=== PATIENT | female | born 2000 | race Caucasian/White ===

== ENCOUNTER 2025-06-16 09:35 | Outpatient (AMB) | payer MEDICAID, SELFPAY ==
--- NOTE | 2025-06-16 10:00 | A.PHYSOV_ITS ---
Vital Signs 06/16/25 10:05 Height 5 ft 3 in Weight 146 lb BMI 25.9 Intake Visit Reasons: NPV -CHRONIC B/L LOW BACK PAIN W/OUT SCIATICA Intake Note: Patient is a 64 year old female here today for a new patient appointment . Patient is having low back pain. Supervisor Core Drilling Required: No Allergies amphetamine (From Adderall) Allergy (Unknown, Verified 06/13/25 11:32) Unknown coconut oil Allergy (Unknown, Verified 06/13/25 11:32) Unknown dextroamphetamine (From Adderall) Allergy (Unknown, Verified 06/13/25 11:32) Unknown dog dander Allergy (Unknown, Verified 06/13/25 11:32) Unknown epinephrine Allergy (Unknown, Verified 06/13/25 11:32) unknown HPI Comments Details: History of Present Illness The patient is a 24-year-old female presenting with chronic back pain and associated right leg weakness. The back pain has been present since she was 11 or 12 years old, but it has worsened significantly over the past year and a half to two years. The pain is exacerbated by any activity, including standing, walking, and sitting, and is rated as a 6 out of 10 in severity. The patient reports that the pain radiates from her back down her right leg, causing weakness and paresthesias. She has not undergone any recent treatments such as physical therapy or customer care assistant. The patient has a history of fibromyalgia, which contributes to her overall pain experience. She also reports numbness in her right leg, which she did not initially notice until it was pointed out during the examination. I reviewed the referring provider's no prior consultation. Results - Imaging: X-ray lumbar spine 05/16/2025 impression: Walking fracture dislocation lumbar spine. The images were reviewed by me and I agree with the radiology report. [facility] Social History (Updated 06/16/25 @ 10:11 by Kathryn Zamora MA) Unable to assess alcohol history related to: Unknown Alcohol intake: current Alcohol intake frequency: does not drink Patient Tobacco Use Status: Never used Tobacco Use of substances other than those prescribed or required for medical reasons: Yes Substance Use Type: Marijuana Review of Systems Narrative Review of Systems - Musculoskeletal: Reports chronic back pain and right leg weakness. - Neurological: Reports numbness in right leg. Physical Exam Exam Exam: Physical Exam Lumbar Spine: Examination of her lumbar spine, there is no visible swelling or deformity. She is tender to the lower lumbar facets. She is otherwise nontender. Full range of motion of the lumbar spine. She does have an increase in pain with facet loading. Special Tests: Lhermittes sign was negative Heel Toe walk is normal Left straight leg raise: Negative Right straight leg raise: Negative Special tests Kaylie test is negative Ganslen's test is negative SI Joint compression test negative Sejal test negative Piriformis stretch is negative Lower Extremities: Full range of motion bilateral lower extremities. No calf pain or edema. Neuro: Sensation: Patient reports decreased sensation throughout the right lower extremity to light touch. Strength L2 (Psoas): 5/5 on the left and 5/5 on the right. L3 (Quads): 5/5 on the left and 5/5 on the right. L4 (Ant tibialis): 5/5 on the left and 5/5 on the right. L5 (EHL) 5/5 on the left and 5/5 on the right. S1 (Gastroc): 5/5 on the left and 5/5 on the right. DTR L4: (Patellar) Left 2 Right 2 S1: (Achilles) Left 2 Right 2 Babinski Downgoing No pathologic clonus. No involuntary movement. Vital Signs: BMI result Body Mass Index 25.9 Assessment & Plan Assessment & Plan (1) Lumbar radiculopathy: Code(s): M54.16 - Radiculopathy, lumbar region Category: Medical Plan Plan Patient was informed and verbally consented to the use of an ambient scribe for clinic note documentation during this visit. 1. Chronic Back Pain The patient will be referred to physical therapy to address chronic back pain and associated symptoms. Follow-up post physical therapy, she is not markedly improved we will consider MRI of her lumbar spine. She has found marijuana to be helpful. She may continue use. She may also continue Tylenol. We discussed the benefits of proper nutrition and exercise to maintain a healthy body weight to improve longevity and function. We also discussed the benefits of proper lifting techniques, core strengthening and proper posture. Thank you for allowing me to participate in the care of your patient. Patient Instructions - Attend physical therapy sessions as scheduled. - Continue using marijuana for pain management if effective. - Monitor for any changes in pain levels or functionality and report them. - Follow up after completing physical therapy for further evaluation. Orders: Orders PT Evaluation and Treatment Today M54.16 - Radiculopathy, lumbar region Coding Level of Care Code Tele New Pt Level 4 (78003) Diagnoses Lumbar radiculopathy M54.16
[2025-06-16 10:05] VITALS: BMI 25.9
--- OUTSIDE RECORDS SUMMARY | 2025-06-16 11:05 | XMS_ITS | Encounter Summary ---
Author Organization [facility] Address [address] [place] [address] Care Team Providers Care Vendor Quality Supervisor Name Role Phone Palmira Michele MD Primary Care Prov ider Encounter Details Date Type Department Care Team (Late st Contact Info) Description 05/16/2025 Results Follow-Up Adult Medicine [facility] [address] [place], [place] [phone] Diana Mckenzie PA [address] [place], [place] Social History Tobacco Use Types Packs/Day Years Used Date Smoking Tobacco: Never Smokeless Tobacco: Never Alcohol Use Standard Drinks/Week Comments Never 0 (1 standard drink = 0.6 oz pur e alcohol) Housing Instability Answer Date Recorde d Are you worried that in the next 2 months you may not have stable housing? No 01/27/2025 Food Access & Nutrition Answer Date Rec orded Do you have access to a vari ety of food including fruits and vegetables? Yes 01/27/2025 Access to Healthcare Answer Date Record ed Within the last 3 months, ho w many times did you visit the emergency department for your medical care? 0 01/27/2025 Health Literacy Answer Date Recorded How often do you need to hav e someone help you when you read instructions, pamphlets, or other written material from your doctor or pharmacy? Often 01/27/2025 Caregiver: How often do you need to have someone help you when you read instructions, pamphlets, or other written material from your doctor or pharmacy? Not on file 01/27/2025 Financial Risk Answer Date Recorded How hard is it for you to pa y for the very basics like food, housing, medical care, and air conditioning / heating? Not very hard 01/27/2025 Transportation Answer Date Recorded Has the lack of transportati on kept you from meetings, work, or from getting things needed for daily living? No Has the lack of transportati on kept you from medical appointments or from getting medications? No 01/27/2025 Social Isolation Answer Date Recorded How often do you feel lonely or isolated from th ose around you? Rarely 01/27/2025 Food Risk Answer Date Recorded Within the past 12 months we worried whether our food would run out before we got money to buy more. Sometimes true 025 Within the past 12 months th e food we bought just didn't last and we didn't have money to get more. Sometimes true 01/27/2025 Dependent Care Answer Date Recorded Do you need help finding or paying for care for your loved ones. For example, child center assistant or elderly care for an older adult? No 01/27/2025 Education Answer Date Recorded Do you think completing more education or training, like finishing a GED, going to college, or learning a trade, would be helpful for you? Yes 01/27/2025 Employment and Income Answer Date Recor ded During the last four weeks, have you been actively looking for work? No 01/27/2025 Living Situation Answer Date Recorded What is your living situation? Unrecognized valu e 01/27/2025 Comments No Sex and Gender Information Value Date Recorded Sex Assigned at Not on file Legal Sex Female 1:03 PM EST Gender Identity Not on file Sexual Orientation Not on file documented as of this encounter Plan of Treatment Upcoming Encounters Date Type Department Care Team (Late st Contact Info) Description 06/23/2025 1:15 PM EST Office Visit Orthopedic Surgery - [place] [address] [facility] [address] [place] [id number] [place], [place] [address] [facility] [address] [place] [address] 06/28/2025 2:30 PM EST Office Visit Adult Medicine [address] [phone] Palmira Michele MD [address] [place] [address] 01/31/2026 3:00 PM EDT Office Visit Adult Medicine [address] [phone] Palmira Michele MD [address] [place] [address] documented as of this encounter Visit Diagnoses Not on filedocumented in this encounter Additional Health Concerns Assessment Noted Time PHQ-9 Depression Total Score: 0 01/28/20 25 2:53 PM EDT documented as of this encounter Care Teams Vendor Quality Supervisor Relationship Specialty Start Date End Date Palmira Michele MD [address] [place] [address] PCP - General Internal Medicine 01/26/25 documented as of this encounter
--- OUTSIDE RECORDS SUMMARY | 2025-06-16 11:05 | XMS_ITS | Encounter Summary ---
Author Organization [facility] Address [address] [place] [address] Care Team Providers Care Handbag Stitcher Name Role Phone Palmira Michele MD Primary Care Prov ider Encounter Details Date Type Department Care Team (Late st Contact Info) Description 05/16/2025 Results Follow-Up Adult Medicine [facility] [address] [place], [place] [phone] Diana Mckenzie PA [address] [place], [place] Social History Tobacco Use Types Packs/Day [...] care for your loved ones. For example, children's zoo caretaker or elderly care for an older adult? [...] PM EST Office Visit Orthopedic Surgery - [place] [address] [facility] [address] [place] [phone] [place], [place] [address] [facility] [address] [place] [address] 06/28/2025 2:30 PM EST Office Visit Adult Medicine [address] [phone] Palmira Michele MD [address] [place] [address] 01/31/2026 3:00 PM EDT Office Visit Adult Medicine [address] [phone] Palmira Michele MD [address] [place] [address] documented as of this encounter Visit Diagnoses Diagnosis Lyme disease- Primary Paresthesias Disturbance of skin sensation documented in this encounter Additional Health Concerns Assessment Noted Time PHQ-9 Depression Total Score: 0 01/28/20 2:53 PM EDT documented as of this encounter Care Teams Handbag Stitcher Relationship Specialty Start Date End Date Palmira Michele MD [address] [place] [address] PCP - General Internal Medicine 01/26/25 documented as of this encounter
--- OUTSIDE RECORDS SUMMARY | 2025-06-16 11:05 | XMS_ITS | Clinical Summary ---
Author Organization 175 [facility] Address [address] [place] [address] Phone Care Team Providers Care Denial Resolution Specialist Name Role Phone Palmira Michele MD Primary Care Prov ider Allergies Active Allergy Reactions Criticality Noted Date Comments Dextroamphetamine-Amphetam ine Palpitations 06/30/2024 Pt states it gives her a heart attack and stops her heart Coconut Oil 06/10/2022 Dog Dander 06/10/2022 Epinephrine Anaphylaxis High 09/02/2022 Medications loratadine (CLARITIN) 10 mg tablet Take 1 Tablet by mouth daily. Active OMEGA-3 FATTY ACIDS-FISH OIL ORAL Take by mouth daily. Active hydrOXYzine HCL (ATARAX) 25 mg tablet Take 1 tablet (25 mg total) by mouth. Takes 2 tablets daily Active folic acid (FOLVITE) 1 mg tablet Take 1 tablet (1,000 mcg total) by mouth 1 (one) time each day. 5 Active doxycycline (VIBRAMYCIN) 100 mg capsule Take 1 capsule (100 mg total) by mouth 2 (two) times a day for 21 days. Take with at least 8 ounces (large glass) of water, do not lie down for 30 minutes after. Administer 2 hours before or after multivitamins, antacids, or other products containing polyvalent cations (i.e., calcium, iron, magnesium, selenium, zinc). 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 Anxiety 06/19/2022 Overview (05/27/2024): Pt to restart seroquel, [facility] reports safe in Arthritis 06/19/2022 Overview (05/27/2024): [facility] recommends rheumatology consult and these labs prior to consult: ? Antiphospholipid antibodies (Cardiolipin IgG and IgM, zvrt-0-ptelwbaulsys IgG and IgM, lupus anticoagulant) ? SSA and SSB antibodies 09/10/22 Pt had rheumatology consult at [facility], records requested Breathing difficulty 06/19/2022 Overview (05/27/2024): As per [facility] pulmology consult needed Last Assessment & Plan: Patient with dyspnea on exertion which is mild. Pulmonary work-up including pulmonary function test pre and post is negative. Physical examination is negative. Patient has an upcoming appointment with cardiology. It may be anxiety but in order to complete the work-up I will order also a chest x-ray. Depending of the results I told her that we will see her in a as needed basis after cardiology. For now no need for bronchodilators. Anemia in 06/14/2022 Overview (05/27/2024): Fe supp orderd Marijuana use 06/06/2022 Overview (05/27/2024): +06/05 Bowel trouble 12/19/2021 PTSD (post-traumatic stress disorder) 07/08/2018 Constipation 07/08/2018 Personality disorder ([facility] V24, [facility] V28) 11/13/2015 Encounters Date Type Department Care Team Description 06/08/2025 1:00 PM EST Office Visit [facility] [place] [address] [phone] Cooper Reddy, DPM Pain in left foot (Primary Dx); Lumbosacral radiculopathy; Plantar wart 05/25/2025 2:30 PM EDT Office Visit [facility] [place] [address] [phone] Cooper Reddy A, DPM Pain in left foot (Primary Dx); Lumbosacral radiculopathy; Plantar wart 05/16/2025 8:45 AM EDT - 05/16/2025 11:59 PM EDT Hospital Encounter [address] [phone] Chronic bilateral low back pain without sciatica Discharge Disposition: Home or Self Care 05/16/2025 8:00 AM EDT Office Visit [address] [phone] Diana Mckenzie PA Chronic bilateral low back pain without sciatica (Primary Dx); Chronic daily headache; Seizure-like activity (CMS/HCC V24, CMS/HCC V28); Paresthesias; Family history of seizure disorder 05/16/2025 Results Follow-Up [address] [phone] Diana Mckenzie PA 05/16/2025 Results Follow-Up [address] [phone] Diana Mckenzie PA 05/11/2025 1:45 PM EDT Office Visit [facility] [address] [phone] Cooper Reddy A, DPM Lumbosacral radiculopathy (Primary Dx); Pain in left foot; Plantar wart 04/27/2025 2:30 PM EDT Office Visit Orthopedic Surgery [facility] 250 175 [facility] [address] [place] [phone] Cooper Reddy MICHELINETim Lumbosacral radiculopathy (Primary Dx); Pain in left foot; Plantar wart 04/13/2025 2:00 PM EDT Consult Orthopedic Surgery [facility] 250 [address] [facility] [address] [place] [phone] Cooper Reddy, DPTim Pain in left foot (Primary Dx); Plantar wart from Last 3 Months Surgical History Surgery Date Site/Laterality Comments NO PAST SURGERIES Medical History Medical History Date Comments Migraine 12 years old Family History Medical History Relation Name Comments Breast cancer Maternal Grandmother Breast cancer Mother Ovarian cancer Mother Breast cancer Other mother side 3 cousin Colon cancer Neg Hx Relation Name Status Comments Maternal Grandmother Mother Other Social History Tobacco Use Types Packs/Day Years Used Date Smoking Tobacco: Never Smokeless Tobacco: Never Tobacco Cessation:Counseling Given: Not Answered Alcohol Use Standard Drinks/Week Comments Never 0 [...] care for your loved ones. For example, childhood development teacher or elderly care for an older adult? [...] on file Sexual Orientation Not on file Obstetrics History * This document contains information received from the source organization and may not represent a complete record from that organization. Para Term AB IAB SAB Ectopic Multiple Livin g Live Births 2 1 1 1 1 Date Outcome GA Total Labor Labor/2nd/3rd Weight Sex Type Anes PTL Luh A1 A5 Name Clin 023 Term 39w 4d 3232 g (114 oz) F Vag-S pont Living Delivery Location:[facility] Filed Vital Signs Vital Sign Reading Time Taken Comments Blood Pressure 107/61 05/16/2025 8:16 AM EDT Pulse 79 05/16/2025 8:16 AM EDT Temperature 36.6 C (97.8 F) 05/16/2025 8:16 AM EDT Respiratory Rate 14 05/16/2025 8:16 AM EDT Oxygen Saturation 98% 05/16/2025 8:16 AM EDT Inhaled Oxygen Concentration - - Weight 67 kg (147 lb 12.8 oz) 05/16/2025 8:16 AM EDT Height 160 cm (5' 3 ) 05/16/2025 8:16 AM EDT Body Mass Index 26.18 05/16/2025 8:16 AM EDT Plan of Treatment Upcoming Encounters Date Type Department Care Team (Late st Contact Info) Description 06/23/2025 1:15 PM EST Office Visit Orthopedic Surgery - [place] [address] [phone] Cooper Reddy, DPM [address] [address] 06/28/2025 2:30 PM EST Office Visit Adult Medicine [address] [phone] Palmira Michele MD [address] [place] [address] 01/31/2026 3:00 PM EDT Office Visit Adult [address] [phone] Palmira Michele MD [address] [place] [address] Health Maintenance Due Date Last Done Comments Social Influencers of Health Screening 01/27/2026 01/27/2025 Influenza Vaccine (#1) 2026 4, 04/14/2013, 11/23/2011, Additional history exists Postponed from 04/04/2025 (Patient Refused) Cervical Cancer Screening: Pap Smear 01/28/2028 01/27/2025, 06/14/2022, 06/14/2022, Additional history exists RSV Immunization Adult Patients (1 - 1-dose 75+ series) 2073 Hepatitis B Vaccines Completed 07/02/1999, 1998, 1998 HIB Vaccines Completed 12/27/1999, 04/05, 01/30/1999, Additional history exists Pneumococcal Vaccine: Pediatrics (0 to 5 Years) and At-Risk Patients (6 to 49 Years) Completed 05/30/2000, 03/28/2000 IPV Vaccines Completed 2003, 03/05, 11/29/1999, Additional history exists MMR Vaccines Completed 2003, 12/27/1999 DTaP,Tdap,and Td Vaccines Discontinued 2009, 2003, 03/28/2000, Additional history exists Varicella Vaccines Completed 01/18/2010, 09/28/1999 HPV Vaccines Completed 07/30/2011, 03/05, 01/23/2011 Meningococcal ACWY Vaccine Completed 10/31/2014, Meningococcal B Vaccine Discontinued 01/15/2019 COVID-19 Vaccine Discontinued 02/14/2021, 01/17/2021 Gonorrhea/Chlamydia Screening Discontinued 06/14/2022 Depression Screening Completed 01/27/2025 Hepatitis C Screening Completed 05/16/2025 HIV Screening Discontinued Hepatitis A Vaccines Aged Out No long er eligible based on patient's age to complete this topic Medicare Annual Wellness Visit Discontinued RSV Immunization Patients Under 20 months Aged Out No longer eligible based on patient's age to complete this topic Procedures Procedure Name Priority Date/Time Associated Diagnosis Comments CBC WITH AUTO DIFFERENTIAL Routine 05/16/2025 9:27 AM EDT Paresthesias COMPREHENSIVE METABOLIC PANEL Routine 05/16/2025 9:27 AM EDT Adult general medical examination HEPATITIS C ANTIBODY Routine 05/16/2025 9:27 AM EDT Need for hepatitis C screening test VITAMIN B12 AND FOLATE Routine 05/16/2025 9:27 AM EDT Paresthesias THYROID STIMULATING HORMONE WITH REFLEX TO FREE T4 AND FREE T3 Routine 05/16/2025 9:27 AM EDT Paresthesias BORRELIA BURGDORFERI ANTIBODY Routine 05/16/2025 9:27 AM EDT Paresthesias CBC AND DIFFERENTIAL Routine 05/16/2025 9:27 AM EDT Paresthesias IRON AND TIBC Routine 05/16/2025 9:27 AM EDT Paresthesias FERRITIN Routine 05/16/2025 9:27 AM EDT Paresthesias XR LUMBAR SPINE 4+ VIEWS Routine 05/16/2025 9:07 AM EDT Chronic bilateral low back pain without sciatica PAP SMEAR Routine 01/27/2025 3:40 PM EDT Encounter for annual routine gynecological examination Pap smear for cervical cancer screening HM GONORRHEA/CHLAMYDIA SCRREENING Routine 06/14/2022 from Last 3 Months or Most Recently Relevant to Health Maintenance Results * Hepatitis C antibody (05/16/2025 9:27 AM EDT) Hepatitis C Antibody Negative Negative LAB CHEMISTRY METHOD 05/16/2025 3:45 PM EDT [facility] Blood Venous blood specimen / Unknown Venipuncture / Unknown 05/16/2025 9:27 AM EDT 05/16/2025 9:27 AM EDT us Palmira Michele MD LAB BLOOD ORDERABL ES Final Result [facility] [address] [place] [address], [place] [phone] * Thyroid stimulating hormone with reflex to free t4 and free t3 (05/16/2025 9:27 AM EDT) TSH 2.36 0.40 - 4.00 mcIU/mL LAB CHEMISTRY METHOD 05/16/2025 5:37 PM EDT [facility] Blood Venous blood specimen / Unknown Venipuncture / Unknown 05/16/2025 9:27 AM EDT 05/16/2025 9:27 AM EDT Diana MICHELE LAB BLOOD ORDERABLES Final Resu lt Performing Organization Address City/[facility]/ZIP Co de Phone Number [facility] [address] [place] [address], [place] [phone] * (ABNORMAL) Vitamin B12 and folate (05/16/2025 9:27 AM EDT) Pathologist [facility] Vitamin B-12 383 250 - 900 pcg/mL LAB CHEMISTRY METHOD 05/16/2025 2:05 PM EDT [facility] Folate >20.0(H) 2.8 - 17.0 ng/ml LAB CHEMISTRY METHOD 05/16/2025 2:05 PM EDT [facility] Blood Venous blood specimen / Unknown Venipuncture / Unknown 05/16/2025 9:27 AM EDT 05/16/2025 9:27 AM EDT Diana MICHELE LAB BLOOD ORDERABLES Final Resu lt Performing Organization Address [facility]/ZIP Co de Phone Number [facility] [address] [place] [address], [place] [phone] * (ABNORMAL) CBC auto differential (05/16/2025 9:27 AM EDT) Pathologist [facility] WBC 7.2 4.8 - 10.8 K/mcL LAB HEMETOLOGY METHOD 05/16/2025 10:23 AM EDT [facility] RBC 4.50 3.80 - 4.80 M/[facility] LAB HEMETOLOGY METHOD 05/16/2025 10:23 AM EDT [facility] Hemoglobin 13.5 11.5 - 16.0 g/dL LAB HEMETOLOGY METHOD 05/16/2025 10:23 AM EDT [facility] Hematocrit 40.0 35.0 - 47.0 % LAB [facility] MCV 88.9 79.0 - 98.0 [place] LAB HEMETOLOGY METHOD 05/16/2025 10:[address] [facility] MCH 30.0 27.0 - 32.0 pcg LAB HEMETOLOGY METHOD 05/16/2025 10:[address] [facility] MCHC 33.8 32.0 - 37.0 g/dL LAB HEMETOLOGY METHOD 05/16/2025 10:[address] [facility] RDW 12.1 11.0 - 15.0 % LAB HEMETOLOGY METHOD 05/16/2025 10:[address] [facility] Platelets 232 130 - 400 K/mcL LAB HEMETOLOGY METHOD 05/16/2025 10:[address] [facility] MPV 9.7 7.0 - 11.0 FL LAB HEMETOLOGY METHOD 05/16/2025 10:[address] [facility] NRBC 0.0 <1.0 % LAB HEMETOLOGY METHOD 05/16/2025 10:[address] [facility] NRBC Absolute 0.00 <0.10 K/mcL LAB HEMETOLOGY METHOD 05/16/2025 10:[address] [facility] Neutrophils Relative 59.0 % LAB HEMETOLOGY METHOD 05/16/2025 10:[address] [facility] Lymphocytes Relative 32.6 % LAB HEMETOLOGY METHOD 05/16/2025 10:[address] [facility] Monocytes Relative 6.9 % LAB HEMETOLOGY METHOD 05/16/2025 10:[address] [facility] Eosinophils Relative 0.7 % LAB HEMETOLOGY METHOD 05/16/2025 10:[address] [facility] Basophils Relative 0.1 % LAB HEMETOLOGY METHOD 05/16/2025 10:23 AM EDT [facility] Immature Granulocytes Relative 0.7 % LAB HEMETOLOGY METHOD 05/16/2025 10:23 AM EDT [facility] Neutrophils Absolute 4.25 1.50 - 7.00 K/[facility] LAB HEMETOLOGY METHOD 05/16/2025 10:[address] [facility] Lymphocytes Absolute 2.35 1.00 - 5.00 K/mcL LAB HEMETOLOGY METHOD 05/16/2025 10:23 AM EDT [facility] Monocytes Absolute 0.50 0.20 - 1.00 K/[facility] LAB HEMETOLOGY METHOD 05/16/2025 10:23 AM EDT [facility] Eosinophils Absolute 0.05 0.00 - 0.50 K/mcL LAB HEMETOLOGY METHOD 05/16/2025 10:[address] [facility] Basophils Absolute 0.01 0.00 - 0.20 K/mcL LAB HEMETOLOGY METHOD [facility]16[facility] Immature Granulocytes Absolute 0.05(H) 0.00 - 0.03 K/mcL LAB HEMETOLOGY METHOD 05/16/2025 10:[address] [facility] Blood Venous blood specimen / Unknown Venipuncture / Unknown 05/16/2025 9:27 AM EDT 05/16/2025 9:27 AM EDT us Diana MICHELE LAB BLOOD ORDERABLES Final Resu lt [facility] [address] [place] [address], * Iron and TIBC (05/16/2025 9:27 AM EDT) Iron 80 40 - 150 mcg/dL LAB CHEMISTRY METHOD 05/16/2025 1:43 PM EDT [facility] TIBC 319 250 - 450 mcg/dL LAB CHEMISTRY METHOD 05/16/2025 1:43 PM EDT [facility] Iron Saturation 25 15 - 50 % LAB CHEMISTRY METHOD 05/16/2025 1:43 PM EDT [facility] Blood Venous blood specimen / Unknown Venipuncture / Unknown 05/16/2025 9:27 AM EDT 05/16/2025 9:27 AM EDT us Diana MICHELE LAB BLOOD ORDERABLES Final Resu lt [facility] [address] [place] [address], [place] [phone] * (ABNORMAL) Borrelia burgdorferi antibody (05/16/2025 9:27 AM EDT) Lyme IgG Antibody Positive( A) Negative LAB CHEMISTRY METHOD 05/16/2025 2:06 PM EDT [facility] Lyme IgM Antibody Positive( A) Negative LAB CHEMISTRY METHOD 05/16/2025 2:06 PM EDT [facility] Lyme Ab Positive( A) Negative LAB CHEMISTRY METHOD 05/16/2025 2:06 PM EDT [facility] Comment: Results are consistent with B. burgdorferi (Lyme disease) in the recent or remote past. Antibodies may remain detectable for months to years following resolution of infection. Results SHOULD NOT be used to monitor or establish adequate response to therapy. Response to therapy is confirmed through resolution of clinical symptoms; additional laboratory testing SHOULD NOT be performed. If both tests are equivocal consider repeat testing in 7-14 days if clinically warranted Blood Venous blood specimen / Unknown Venipuncture / Unknown 05/16/2025 9:27 AM EDT 05/16/2025 9:27 AM EDT us Diana MICHELE LAB BLOOD ORDERABLES Final Resu lt [facility] [address] [place] [address], [place] [phone] * Ferritin (05/16/2025 9:27 AM EDT) Pathologist [facility] Ferritin 22 8 - 252 ng/mL LAB CHEMISTRY METHOD 05/16/2025 1:43 PM T [facility] Blood Venous blood specimen / Unknown Venipuncture / Unknown 05/16/2025 9:27 AM EDT 05/16/2025 9:27 AM EDT us Diana MICHELE LAB BLOOD ORDERABLES Final Resu lt [facility] [address] [place] [address], [place] [phone] * Comprehensive metabolic panel (05/16/2025 9:27 AM EDT) [facility] Sodium 139 133 - 145 mmol/L LAB CHEMISTRY METHOD 05/16/2025 1:[address] [facility] Potassium 4.4 3.5 - 5.5 mmol/L LAB CHEMISTRY METHOD 05/16/2025 1:[address] [facility] Chloride 104 96 - 110 mmol/L LAB CHEMISTRY METHOD 05/16/2025 1:[address] [facility] CO2 28 21 - 32 mmol/L LAB CHEMISTRY METHOD 05/16/2025 1:[address] [facility] Anion Gap 7 3 - 11 LAB CHEMISTRY METHOD 05/16/2025 1:[address] [facility] Glucose 95 70 - 100 mg/dL LAB CHEMISTRY METHOD 05/16/2025 1:[address] [facility] BUN 11 5 - 25 mg/dL LAB CHEMISTRY METHOD 05/16/2025 1:[address] [facility] Creatinine 0.74 0.50 - 1.10 mg/dL LAB CHEMISTRY METHOD 05/16/2025 1:[address] [facility] eGFR 115 >=60 mL/min/1. 73m2 LAB CHEMISTRY METHOD 05/16/2025 1:43 PM EDT [facility] Comment:Calculation based on the Chronic Kidney Disease Epidemiology Collaboration (CKD-EPI) equation refit without adjustment for race. BUN/Creatinine Ratio 14.9 LAB CHEMISTRY METHOD 05/16/2025 1:43 PM EDT [facility] Calcium 9.0 8.5 - 10.5 mg/dL LAB CHEMISTRY METHOD 05/16/2025 1:43 PM EDT [facility] AST (SGOT) 28 10 - 42 unit/L LAB CHEMISTRY METHOD 05/16/2025 1:[address] [facility] ALT (SGPT) 49 10 - 60 unit/L LAB CHEMISTRY METHOD 05/16/2025 1:[address] [facility] Alkaline Phosphatase 56 42 - 121 unit/L LAB CHEMISTRY METHOD 05/16/2025 1:43 PM T [facility] Total Protein 7.3 6.0 - 8.0 g/dL LAB CHEMISTRY METHOD 05/16/2025 1:43 PM T [facility] Albumin 4.0 3.2 - 5.0 g/dL LAB CHEMISTRY METHOD 05/16/2025 1:[address] [facility] Total Bilirubin 0.4 0.0 - 1.4 mg/dL LAB CHEMISTRY METHOD 05/16/2025 1:43 PM T [facility] Blood Venous blood specimen / Unknown Venipuncture / Unknown 05/16/2025 9:27 AM EDT 05/16/2025 9:27 AM EDT us Palmira Michele MD LAB BLOOD ORDERABL ES Final Result [facility] [address] [place] [address], * XR Lumbar Spine 4+ Views (05/16/2025 9:07 AM EDT) Anatomical Region Laterality Modality Spine, L-spine Radiographic Shantel ging 05/16/2025 9:19 AM EDT Impressions 05/16/2025 9:22 AM EDT No acute fracture or dislocation of the lumbar spine. -------- FINAL REPORT -------- Dictated By: Lulu Amanda Dictated Date: 05/16/2025 09:19 ET Assigned Physician: Lulu Amanda Reviewed and Electronically Signed By: Lulu Amanda Signed Date: 05/16/2025 09:22 ET Workstation ID: [id number] Transcribed By: Self Edit Transcribed Date: 05/16/2025 09:19 ET Narrative 05/16/2025 9:22 AM EDT HISTORY: lower back pain TECHNIQUE: 4 views of the lumbar spine COMPARISON: None FINDINGS: Vertebral body height and disc spaces are preserved. No acute fracture or dislocation is seen. The spinal alignment is well maintained without evidence of spondylolisthesis. The sacroiliac joints are unremarkable. Large amount stool throughout the colon. Procedure Note Lulu Amanda MD - 05/16/2025 HISTORY: lower back pain TECHNIQUE: 4 views of the lumbar spine COMPARISON: None FINDINGS: Vertebral body height and disc spaces are preserved. No acute fracture ordislocation is seen. The spinal alignment is well maintained withoutevidence of spondylolisthesis. The sacroiliac joints are unremarkable.Large amount stool throughout the colon. IMPRESSION: No acute fracture or dislocation of the lumbar spine. -------- FINAL REPORT -------- Dictated By: Lulu Amanda Dictated Date: 05/16/2025 09:19 ET Assigned Physician: Lulu Amanda Reviewed and Electronically Signed By: Lulu Amanda Signed Date: 05/16/2025 09:22 ET Workstation ID: [id number] Transcribed By: Self Edit Transcribed Date: 05/16/2025 09:19 ET us Diana MICHELE IMG XR PROCEDURES Final Result * Pap smear (01/27/2025 3:40 PM EDT) Interpretation Negative for intraepithelial lesion or malignancy 02/02/2025 9:39 AM EDT [facility] General Categorization Negative 02/02/2025 9:39 AM EDT [facility] LMP 12/31/2024 02/02/2025 9:39 AM EDT [facility] Specimen Adequacy Satisfactory for evaluation, endocervical/urias sformation zone component present 02/02/2025 9:39 AM EDT [facility] Pap Methodology Liquid Based Pap Test 02/02/2025 9:39 AM EDT [facility] Disclaimer The Pap test is a screening test which carries an inherent false negative rate. These test results should be correlated with the patient's clinical findings and history. This Pap test was processed using an automated screening system. Technical cytopathology services provided by [facility], at [address] [place] [address] (CLIA # [id number]/Melissa Urena MD, Prenatal Teacher.) 02/02/2025 9:39 AM EDT [facility] Console Pap Interpretation Reported 02/02/2025 9:39 AM EDT [facility] Brushing/Spatula Cervix uteri structure / Unknown 01/27/2025 3:40 PM EDT 01/27/2025 3:40 PM EDT Sunita Clancy CNM LAB CYTOLOGY ORDERABLES Final R esult [facility] [address] [place] [address], * Hm Gonorrhea/Chlamydia Screening (06/14/2022) Gonorrhea/Chla mydia Screening Abstracted us Historical Provider HEALTH MAINTENANCE Final Result from Last 3 Months or Most Recently Relevant to Health Maintenance Insurance [employer] Member Subscriber Plan / Payer (Ef fective 2022-Present) Name:Edda Ayala Relation to Subscriber:Self Name:Edda Ayala Payer ID:[id number] Group ID:[id number] Type:Not on file Address: [place] [address] [address] [phone] Care Teams Denial Resolution Specialist Relationship Specialty Start Date End Date Palmira Michele MD [address] [place] [phone] PCP - General Internal Medicine 01/26/25
== END 2025-06-16 10:39 | disposition home or self-care (01) ==
LOC: HO.HPHYS 09:36
PROVIDERS: Visit Provider Physician Assistant
DX: M54.16 Radiculopathy, lumbar region (principal)
CPT/HCPCS: 99204

== ENCOUNTER → 2025-06-16 09:35 | Outpatient (BNVA) | payer OTHER, SELFPAY | PROVIDERS: Visit Provider Physician Assistant | DX: M54.16 Radiculopathy, lumbar region (principal) | CPT/HCPCS: 99202 ==